=== PATIENT | female | born 2000 | race Caucasian/White ===

== ENCOUNTER 2022-12-22 18:06 | Inpatient (IN) | payer OTHER ==
[~2022-12-22] VITALS: Ht 154.9 cm; Wt 59.9 kg
[2022-12-22 19:50] LABS: HEMATOCRIT 40.9 % (31.2-41.9); MEAN CORPUSCULAR HEMOGLOBIN 29.9 uug (24.7-32.8); MEAN CORPUSCULAR VOLUME 91.5 fL (75.5-95.3); PLATELET COUNT (AUTO) 293 K/uL (179-408)
--- NOTE | 2022-12-22 19:58 | NUR ---
patient taken to CT by corinna Hills
[2022-12-22 20:03] LABS: CREATININE 0.7 mg/dL (0.6-1.3)
[2022-12-22 20:23] LABS: BILIRUBIN,DIRECT 0.1 mg/dL (0.0-0.2); BILIRUBIN,TOTAL 0.2 mg/dL (0.2-1.0); TOTAL PROTEIN, SERUM 7.8 g/dL (6.4-8.2)
--- NOTE | 2022-12-22 20:30 | NUR ---
PATIENT AMBULATED TO THE RESTROOM WITH STEADY GAIT
[2022-12-22 20:45] LABS: *URINE HCG, QUAL NEGATIVE (NEGATIVE)
--- NOTE | 2022-12-22 20:52 | NUR ---
Dr Posada speaking with Dr Marquis. Neurology consult in progress
--- NOTE | 2022-12-22 20:52 | NUR ---
called Dr Marquis for neuro consult
--- NOTE | 2022-12-22 21:09 | NUR ---
Called [facility] for panel call. Awaiting for Brijesh Jean NP hospitalist to call back
--- NOTE | 2022-12-22 21:11 | NUR ---
Patient has been accepted by Ted [facility]
--- NOTE | 2022-12-22 21:15 | NUR ---
Per Mary MATIASpropellant charge zone assembler nurse, no TELE beds available at the moment. The patient will stay in ER until bed is available
[2022-12-22] MEDS ORDERED: ACETAMINOPHEN 325 MG TABLET PO PRN (21:30)
--- NOTE | 2022-12-23 01:40 | NUR ---
endorsed to Giovana MATIAS TELE
--- NOTE | 2022-12-23 02:07 | NUR ---
Pt. admitted to TELE room 301B , under care of Ted PAZ [employer] List completed Giovana MATIAS aware of patient's arrival
--- NOTE | 2022-12-23 02:33 | NUR ---
Pt is refusing IV insertion at this time
[2022-12-23 04:11] VITALS: BP 102/43
[2022-12-23 07:20] LABS: HEMATOCRIT 39.2 % (31.2-41.9); MEAN CORPUSCULAR HEMOGLOBIN 29.9 uug (24.7-32.8); MEAN CORPUSCULAR VOLUME 91.4 fL (75.5-95.3); PLATELET COUNT (AUTO) 272 K/uL (179-408)
--- NOTE | 2022-12-23 07:21 | NUR ---
TEXT DR. RIVERA FOR MRI APPROVAL.
--- NOTE | 2022-12-23 07:24 | NUR ---
ON HOLD PER DR. RIVERA, HE WILL LET US KNOW.
[2022-12-23 07:45] LABS: THYROID STIMULATING HORMONE 1.737 mIU/mL (0.358-3.740)
[2022-12-23 07:52] LABS: CREATININE 0.7 mg/dL (0.6-1.3); POTASSIUM 3.7 mmol/L (3.5-5.1)
--- NOTE | 2022-12-23 07:53 | NUR ---
Patient rec'd awake alert Denies pain or discomfort. Pending transport to [place] for MRI today
[2022-12-23 10:08] LABS: MAGNESIUM 2.2 mg/dL (1.8-2.4)
[2022-12-23 11:29] VITALS: BP 105/50
--- NOTE | 2022-12-23 11:51 | NUR ---
Patient left via ambulance to [place] for MRI without contrast. [id number] Ambulatory.
[2022-12-23] MEDS ORDERED: SUMA50TA PO (12:36)
[2022-12-23 15:16] VITALS: BP 106/63
--- NOTE | 2022-12-23 16:31 | NUR ---
PT RETURNED TO FLOOR [id number] NO CHANGES IN STATUS DISCHARGED PER MD. MRI, CT LAB RESULTS GIVEN.
[2022-12-24 10:06] LABS: *ANTI-SCLERODERMA-70 AB <0.2 AI (0.0-0.9); *SJOGREN'S ANTI-SS-A 2.1 AI (0.0-0.9); *SJOGREN'S ANTI-SS-B <0.2 AI (0.0-0.9); *SMITH ANTIBODIES <0.2 AI (0.0-0.9); ANTI-DNA(DS) AB, QN <1 IU/mL (0-9)
[2022-12-27 10:06] LABS: PTT-LA 35.4 sec (0.0-43.5); THROMBIN TIME 16.8 sec (0.0-23.0)
[2022-12-27 11:06] LABS: LUPUS INTERPRETATION Comment: (.)
== END 2022-12-23 16:00 | disposition home or self-care (01) | DRG 54 ==
LOC: ER 18:14 → TELE3 21:13
PROVIDERS: ADMIT Nurse Practitioner Acute Care; ATTEND Nurse Practitioner Acute Care
DX: G43.109 Migraine with aura, not intractable, without status migrainosus (principal); H93.19 Tinnitus, unspecified ear; R53.1 Weakness; Z20.822 Contact with and (suspected) exposure to COVID-19
CPT/HCPCS: 36415; 70030-TC; 70450; 70551; 82747; 83735; 84443; 84703; 85014; 85025; 85613; 85651; 85730; 86038; 86592; 93005; A4663; G0378